=== PATIENT | male | born 1940 | race Caucasian/White ===

== ENCOUNTER 2022-12-20 05:58 | Day surgery (SDC) | payer MEDICARE ==
[~2022-12-20] VITALS: Ht 162.6 cm; Wt 77.3 kg
[2022-12-20] VITALS (10 sets, daily range): BP systolic 123–178; BP diastolic 51–97
[~2022-12-20 05:58] MED LIST: ASPI-974 PO; ATOR80TA PO; CLOP75TA15 PO; HYDR25TA4 PO; INDO50CA96 PO; ISOS30TA9 PO; LEVO125T8 PO; OMEP20CA15 PO; VALS80TA2 PO
[2022-12-20] MEDS ORDERED: diphenhydrAMINE 25mg capsule PO PRN (06:30)
[2022-12-20] MEDS ORDERED: normal saline 1,000 ML IV SCH (06:30)
[2022-12-20] MEDS ORDERED: AMLO2.5T5 PO (06:36)
[2022-12-20] MEDS ORDERED: PRED10TA PO (06:36)
[2022-12-20] MEDS ORDERED: EZET10TA48 PO (06:36)
[2022-12-20] MEDS ORDERED: NITR0.4T48 SL (06:36)
[2022-12-20 07:22] LABS: BASOPHILS % (AUTO) 0.6 % (0-1); EOSINOPHILS # (AUTO) 0.1 X10'3 (0-0.9); EOSINOPHILS % (AUTO) 0.9 % (0-6); HEMATOCRIT 43.6 % (42.0-52.0); HEMOGLOBIN 15.2 g/dl (14.0-17.9); LYMPHOCYTES # (AUTO) 0.7 X10'3 (1.1-4.8); LYMPHOCYTES % (AUTO) 10.3 % (21-51); MEAN CORPUSCULAR HEMOGLOBIN 31.2 PG (27.0-31.0); MEAN CORPUSCULAR HGB CONC 34.8 g/dL (33.0-36.5); MEAN CORPUSCULAR VOLUME 89.7 FL (78-98); MEAN PLATELET VOLUME 7.3 FL (7.4-10.4); MONOCYTES # (AUTO) 0.5 X10'3 (0-0.9); MONOCYTES % (AUTO) 7.1 % (2-12); NEUTROPHILS # (AUTO) 5.3 X10'3 (1.8-7.7); NEUTROPHILS % (AUTO) 81.1 % (42-75); PLATELET COUNT 267 X10'3 (140-440); RED BLOOD COUNT 4.86 X10'6 (4.70-6.10); WHITE BLOOD COUNT 6.5 X10'3 (4.5-11.0)
[2022-12-20 07:34] LABS: ALBUMIN 3.7 G/DL (3.4-5.0); ANION GAP 9 (8-16); BLOOD UREA NITROGEN 21 MG/DL (7-18); BUN/CREATININE RATIO 19.1 (10.0-20.0); CALCIUM 9.1 MG/DL (8.5-10.1); CHLORIDE 105 MMOL/L (99-107); GLUCOSE 112 MG/DL (70-104); POTASSIUM 3.8 MMOL/L (3.5-5.1); SODIUM 142 MMOL/L (135-145); TOTAL CARBON DIOXIDE 28.2 MMOL/L (24-32); eGFR 64 ML/MIN
[2022-12-20] MEDS ORDERED: nitroGLYCERIN-Tridil 50MG/D5W 0 ML IV ONE (08:52)
[2022-12-20] MEDS ORDERED: midazolam 1 mg/ML 2ml injection ONE ×2 (08:52→09:29)
[2022-12-20] MEDS ORDERED: fentaNYL/PF 50MCG/1 ML 2ML syringe ONE (08:52)
[2022-12-20] MEDS ORDERED: verapamil 2.5 mg/ml inj IV ONE (08:52)
[2022-12-20] MEDS ORDERED: heparin 1,000unit/ml 10ml vial 10 ML ONE (08:52)
[2022-12-20] MEDS ORDERED: LIDOcaine 1% (10mg/ml) 2ml vial ONE (08:52)
[2022-12-20] MEDS ORDERED: iohexol 350 MG/ML 50ML vial IV ONE (08:52)
[2022-12-20] MEDS ORDERED: iohexol 350MG/ML 100ml bottle IV ONE (08:53)
[2022-12-20] MEDS ORDERED: LIDOcaine 1% 30ml preserv. free vial ONE (08:58)
[2022-12-20] MEDS ORDERED: diphenhydrAMINE 50 mg/ml inj ONE (09:22)
[2022-12-20] MEDS ORDERED: hydrocortisone sod succ/PF 100mg/2ml inj. ONE (09:22)
== END 2022-12-20 14:15 | disposition home or self-care (01) ==
LOC: SSTAY O 05:58
PROVIDERS: ATTEND Internal Medicine Cardiovascular Disease
DX: I25.119 Atherosclerotic heart disease of native coronary artery with unspecified angina pectoris (principal); I10 Essential (primary) hypertension; E78.5 Hyperlipidemia, unspecified; I42.8 Other cardiomyopathies; I48.91 Unspecified atrial fibrillation; Z95.0 Presence of cardiac pacemaker; Z79.899 Other long term (current) drug therapy
CPT/HCPCS: 0523T; 36415; 80048; 83735; 85025; 85610; 93005; 93458; 99152; 99153; J1200; J1644; J1720; J2250; J3010; J3490; J7030; Q0163; Q9967; A6258; A6449; C1725; C1760; C1894